=== PATIENT | male | born 1980 | race Caucasian/White ===

== ENCOUNTER 2020-04-23 16:49 | Outpatient (CLI) | payer SELFPAY ==
[2020-04-23 18:44] LABS: Thyroid Stimulating Hormone > 96.00 uIU/mL (0.36-3.74)
== END 2020-04-23 16:50 | disposition home or self-care (01) ==
LOC: CHSLAB 16:53
PROVIDERS: PCP Family Medicine; Visit Provider Family Medicine
DX: E03.9 Hypothyroidism, unspecified (principal)
CPT/HCPCS: 36415; 84443

== ENCOUNTER 2020-04-30 11:53 | Outpatient (CLI) | payer SELFPAY ==
[2020-04-30 12:18] LABS: Add Urine Microscopic? YES; Appearance Urine Clear (Clear); Basophils Absolute Auto 0.06 K/mm3 (0.00-0.10); Basophils Percent Auto 0.7 % (0.0-1.0); Bilirubin Urine Negative (Negative); Blood Urine Negative (Negative); Color Urine Yellow (Yellow); Eosinophils Absolute Auto 0.42 K/mm3 (0.02-0.50); Eosinophils Percent Auto 4.7 % (1.0-6.0); Glucose Urine UA Negative (Negative); Hematocrit 41.3 % (40.0-54.0); Hemoglobin 14.4 g/dL (14.0-18.0); Immature Granulocyte Absolute 0.02 K/mm3 (0.00-0.00); Immature Granulocyte Percent A 0.2 % (0.0-0.0); Ketones Urine Negative (Negative); Leukocyte Esterase Ur Negative (Negative); Lymphocytes Absolute Auto 2.55 K/mm3 (1.10-4.50); Lymphocytes Percent Auto 28.3 % (18.0-42.0); Mean Corpuscular HGB Conc 34.9 g/dL (32.0-36.0); Mean Corpuscular Hemoglobin 31.2 pg (27.0-31.0); Mean Corpuscular Volume 89.6 fL (78.0-102.0); Mean Platelet Volume 10.1 fl (8.7-11.0); Monocytes Absolute Auto 0.53 K/mm3 (0.10-0.90); Monocytes Percent Auto 5.9 % (2.0-11.0); Neutrophils Absolute Auto 5.4 K/mm3 (1.7-7.2); Neutrophils Percent Auto 60.2 % (50.0-70.0); Nitrate Urine Negative (Negative); Platelet Count Result 217 K/mm3 (150-420); Protein Urine Negative (Negative); Red Blood Count 4.61 M/mm3 (4.70-6.10); Red Cell Distribution Width 13.1 % (11.6-14.4); pH Urine 7.5 (5.0-8.0)
[2020-04-30 12:23] LABS: RBC Urine 0-2 /hpf (0-2); WBC Urine 0-3 /hpf (0-3)
[2020-04-30 12:24] LABS: Bacteria Urine None seen /hpf
[2020-04-30 12:35] LABS: Alanine Aminotransferase 68 U/L (16-63); Albumin Level 3.9 g/dL (3.4-5.0); Alkaline Phosphatase 91 U/L (46-116); Amylase 43 U/L (25-115); Anion Gap 10.9 mmol/L (7-16); Aspartate Amino Transferase 37 U/L (15-37); Bilirubin,Total 0.5 mg/dL (0.00-1.00); Blood Urea Nitrogen 14 mg/dL (7-18); Calcium 8.4 mg/dL (8.5-10.1); Carbon Dioxide 29 mmol/L (21-32); Chloride 102 mmol/L (98-108); Estimated Glomerular Filt Rate > 60; Glucose 97 mg/dL (70-99); Lipase 107 U/L (73-393); Osmolality Calculated 286 mOsm/kg (285-295); Potassium 3.9 mmol/L (3.5-5.1); Sodium 138 mmol/L (136-145); Total Protein 7.2 g/dL (6.4-8.2)
== END 2020-04-30 11:54 | disposition home or self-care (01) ==
LOC: CHSLAB 11:55
PROVIDERS: PCP Family Medicine; Visit Provider Family Medicine
DX: R10.84 Generalized abdominal pain (principal)
CPT/HCPCS: 36415; 80053; 81001; 82150; 83690; 85025

== ENCOUNTER 2020-05-01 07:20 | Outpatient (CLI) | payer SELFPAY ==
--- NOTE | ~2020-05-01 | US_ITS ---
US right upper quadrant INDICATION: Generalized abdominal pain with nausea PROCEDURE: Realtime right upper abdominal ultrasound. COMPARISON: No prior studies for comparison. FINDINGS: The pancreas is normal without focal mass or pancreatic ductal dilation. Liver echotexture is increased, consistent with fatty infiltration There is normal directional flow in the portal vei n. The gallbladder is normal without stones, gallbladder wall thickening or pericholecystic fluid. Comm on bile duct measures 4 mm. No sonographic Pritchett's sign. IMPRESSION: 1: Hepatic steatosis. Reviewed, dictated and finalized at location B. IMPRESSION: 1: Hepatic steatosis.
== END 2020-05-01 07:21 | disposition home or self-care (01) ==
PROVIDERS: PCP Family Medicine; Visit Provider Family Medicine
DX: R10.84 Generalized abdominal pain (principal)
CPT/HCPCS: 76705

== ENCOUNTER 2021-09-20 02:32 | Emergency (ER) | payer BC, SELFPAY ==
--- NOTE | ~2021-09-20 | XR_ITS ---
EXAMINATION: XR chest 1V portable DATE: 09/20/2021 02:59 INDICATION: Left chest pain. TECHNIQUE: A single frontal view of the chest was obtained. COMPARISON: Chest 2 views 10/07/2017 FINDINGS: The chest demonstrates clear lungs without pneumonia, pleural effusion, or pneumothorax. Th e heart size is normal. IMPRESSION: 1. No acute cardiopulmonary disease. Reviewed, dictated and finalized at location A. HERY MAN
--- NOTE | 2021-09-20 02:33 | ECG_ITS ---
Measurements Intervals [place] Rate: 86 P: 30 HI: 176 QRS: 15 QRSD: 102 T: 30 QT: 365 QTc: 438 Interpretive Statements SINUS RHYTHM DELAYED PRECORDIAL R/S TRANSITION VOLTAGE CRITERIA FOR LVH CONSIDER INFERIOR INFARCT, AGE INDETERMINATE BASELINE WANDER- I, II, III BORDERLINE ECG Electronically Signed On 09-20-2021 5:43:09 THREAD CUTTER by Cesar De Jesus D.O.
[2021-09-20 02:40] VITALS: BP 132/116; PULSE 90; RESP 18; TEMP 36.3; O2SAT 97
--- NOTE | 2021-09-20 02:59 | ED.CHESTPAIN ---
HPI - Chest Pain General Chief Complaint: Chest Pain Stated Complaint: CHEST PAIN Time Seen by Provider: 09/20/21 02:34 Source: patient, family and RN notes reviewed Mode of arrival: ambulatory Limitations: no limitations History of Present Illness complaint: chest pain Onset (ago): hour(s) (2) Timing of current episode: constant Prior episodes: Yes (2 years ago) Onset: during rest Pain location: substernal and left chest Pain radiation: none Severity: mild Pain scale (0-10): 5 Quality: aching Relieving factors: nothing Exacerbating factors: nothing Associated symptoms: other (migrainous HAYES) Treatment prior to arrival: none Risk Factors Coronary artery disease risk factors: hypertension Related Data Home Medications Medication Instructions Recorded Confirmed alprazolam 0.5 mg PO PRN PRN 09/20/21 09/20/21 levothyroxine 175 mcg PO DAILY 09/20/21 09/20/21 Allergies Allergy/AdvReac Type Severity Reaction Status Date / Time Penicillins Allergy Hives Verified 09/20/21 02:54 Review of Systems Review of Systems: All systems reviewed & are unremarkable except as noted in HPI and below PMFSH Past Medical History Medical History Chest pain Exam Const: General: cooperative, healthy appearing, no acute distress, well developed, alert and awake Nutritional Appearance: well nourished Orientation/consciousness: patient oriented x3 Limitations: no limitations HENMT: Head: normal to inspection, normocephalic and atraumatic Ears: hearing grossly normal bilaterally and external ears normal General nose exam: Normal external nose present and Normal nares present Mouth: Yes Normal oral and palatal mucosa present, Yes oropharynx normal and Yes moist mucous membranes Throat: posterior oropharynx normal Eyes: General: appearance normal, both eyes and all related structures Eyelids: eyelids normal Conjunctivae: conjunctivae normal Sclera: sclerae normal Cornea: corneas normal Pupils: Equal, round and reactive pupils present EOM: EOMs intact bilaterally Neck: Neck: normal visual inspection, full ROM, no lymphadenopathy and no meningeal signs Chest: Chest palpation & inspection: normal inspection of the chest Resp: Effort & Inspection: normal respiratory effort Auscultation: clear to auscultation bilaterally Percussion: percussion normal Cardio: Jugular venous distension: no JVD Palpation: normal PMI Rate: regular rate Rhythm: regular rhythm Heart sounds: S1 normal heart sound present and S2 normal heart sound present Peripheral pulses: Peripheral pulses 2+ throughout GI: Inspection: normal to inspection GI Palp: Yes Soft to palpation and No Tenderness to palpation present (GI) Percussion: Yes normal to percussion Auscultation: normal bowel sounds : General: Yes bladder normal to inspection and Yes bladder normal to palpation Back/Spine/Pelvis: Back: no CVA tenderness Skin: General skin exam: normal color and no rashes or lesions noted Neuro: General: oriented to person and patient oriented x3 Cranial nerves: Yes CN's II-XII intact bilaterally, Yes Facial sensation intact/muscles of mastication intact, Yes Intact sense of smell present, Yes Equal, round and reactive pupils present, Yes Normal accommodation reflex present and Yes Bilaterally intact EOM present Cognition (Neuro): normal cognition Gait exam (Neuro): Normal gait present Motor exam (neuro): 5/5 motor strength present throughout Extrem: General: normal to inspection, full ROM, capillary refill normal and normal exam except as noted Psych: Appearance: grossly normal and well kempt Mental Status: mental status grossly normal Speech and movement: Normal speech and movement present Affect: normal affect Attitude: cooperative Thought process: Normal thought process present Thought content: Yes Normal thought content present Course Course Emergency Course: Pt was stable and pain-free in
[2021-09-20] MEDS: ASPIRIN 81 MG CHEWABLE TABLET 324 MG PO (03:08)
[2021-09-20] MEDS: KETOROLAC (*BKC) 60 MG/2 ML VIAL IM (03:09)
[2021-09-20] MEDS: cloNIDine HCL 0.2 MG TABLET PO (03:12)
[2021-09-20 03:16] LABS: Basophils Absolute Auto 0.03 K/mm3 (0.00-0.10); Basophils Percent Auto 0.6 % (0.0-1.0); Eosinophils Absolute Auto 0.14 K/mm3 (0.02-0.50); Eosinophils Percent Auto 2.8 % (1.0-6.0); Hematocrit 42.3 % (40.0-54.0); Hemoglobin 15.1 g/dL (14.0-18.0); Lymphocytes Absolute Auto 1.18 K/mm3 (1.10-4.50); Lymphocytes Percent Auto 23.9 % (18.0-42.0); Mean Corpuscular HGB Conc 35.7 g/dL (32.0-36.0); Mean Corpuscular Hemoglobin 31.9 pg (27.0-31.0); Mean Corpuscular Volume 89.4 fL (78.0-102.0); Monocytes Absolute Auto 0.38 K/mm3 (0.10-0.90); Monocytes Percent Auto 7.7 % (2.0-11.0); Neutrophils Absolute Auto 3.2 K/mm3 (1.7-7.2); Platelet Count Result 158 K/mm3 (150-420); Red Blood Count 4.73 M/mm3 (4.70-6.10); Red Cell Distribution Width 12.7 % (11.6-14.4); White Blood Count 4.9 K/mm3 (4.8-10.8)
[2021-09-20 03:31] LABS: Alanine Aminotransferase 61 U/L (16-63); Albumin Level 3.7 g/dL (3.4-5.0); Alkaline Phosphatase 91 U/L (46-116); Anion Gap 12 mmol/L (8-16); Aspartate Amino Transferase 29 U/L (15-37); Bilirubin,Total 0.4 mg/dL (0.00-1.00); Blood Urea Nitrogen 9 mg/dL (7-18); Calcium 7.8 mg/dL (8.5-10.1); Carbon Dioxide 27 mmol/L (21-32); Chloride 100 mmol/L (98-108); Estimated CRCL calculation 92 ml/min; Estimated Glomerular Filt Rate 59; Glucose 117 mg/dL (70-99); NT Pro B Type Natriuretic Pept < 11 pg/mL (0-125); Osmolality Calculated 287 mOsm/kg (285-295); Potassium 3.4 mmol/L (3.5-5.1); Sodium 139 mmol/L (136-145); Total Protein 6.9 g/dL (6.4-8.2); Troponin I 8.1 ng/L (0.00-60.4)
[2021-09-20] MEDS: NITROGLYCERIN SL 0.4 MG TABLET SUBLINGUAL (03:35)
[2021-09-20 03:51] VITALS: BP 107/76; PULSE 80; RESP 18; TEMP 36.6; O2SAT 98
--- NOTE | 2021-09-20 03:52 | PC.NURSE ---
Patient states that CP is still present. gave patient Nitro and will wait to see if pain is relieved.
[2021-09-20 04:00] VITALS: BP 128/97; PULSE 74; RESP 16; TEMP 36.8; O2SAT 97
== END 2021-09-20 04:11 | disposition home or self-care (01) ==
PROVIDERS: Emergency Provider Emergency Medicine; PCP Family Medicine
DX: R07.89 Other chest pain (principal); I10 Essential (primary) hypertension
CPT/HCPCS: 36415; 71045; 80053; 83880; 84484; 85025; 93005; 96372; 99283; 99284; A9270; J1885

== ENCOUNTER 2025-07-21 14:14 | Outpatient (CLI) | payer SELFPAY ==
[2025-07-21 14:38] LABS: Hematocrit 43.2 % (40.0-54.0); Hemoglobin 14.9 g/dL (14.0-18.0); Mean Corpuscular HGB Conc 34.5 g/dL (32-36); Mean Corpuscular Hemoglobin 30.6 pg (27.0-31.0); Mean Corpuscular Volume 88.7 fL (78.0-102.0); Platelet Count Result 221 K/mm3 (150-420); Red Blood Count 4.87 M/mm3 (4.70-6.10); White Blood Count 7.1 K/mm3 (4.8-10.8)
[2025-07-21 14:53] LABS: Alanine Aminotransferase 31 U/L (6-50); Albumin Level 4.3 g/dL (3.5-5.1); Alkaline Phosphatase 89 U/L (38-126); Anion Gap 10 mmol/L (4-12); Aspartate Amino Transferase 31 U/L (17-59); Bilirubin,Total 0.7 mg/dL (0.2-1.3); Blood Urea Nitrogen 8 mg/dL (9-20); Calcium 8.7 mg/dL (8.4-10.2); Carbon Dioxide 28 mmol/L (22-30); Chloride 103 mmol/L (98-107); Estimated Glomerular Filt Rate > 60; Glucose 110 mg/dL (65-110); Osmolality Calculated 291 mOsm/kg (285-295); Potassium 3.9 mmol/L (3.4-5.0); Sodium 141 mmol/L (137-145); Total Protein 7.1 g/dL (6.3-8.2)
--- OUTSIDE RECORDS SUMMARY | 2025-07-21 15:06 | XMS_ITS | Clinical Summary ---
Author Organization [facility] Address [address] [place] [address] Care Team Providers Care Fish Cleaner Name Role Phone Cierra Guadarrama Primary Care Provid er Allergies Active Allergy Reactions Criticality Noted Date Comments Penicillins Unknown 11/28/2022 Medications ofloxacin (OCUFLOX) 0.3 % ophthalmic solution Administer 2 drops into the left eye every 4 (four) hours 5 mL 3 Active lidocaine (LIDODERM) 5 % Place 1 patch on the skin daily Remove & discard patch within 12 hours or as directed by . 9 patch 4 Active Immunizations Immunization Administration Dates Next Due Tdap 11/29/2022 Medical History Medical History Date Comments Hypothyroidism Social History Tobacco Use Types Packs/Day Years Used Date Smoking Tobacco: Never Smokeless Tobacco: Never Tobacco Cessation:Counseling Given: Not Answered Personal Safety Answer Date Recorded Have you ever been in or are you currently in a harmful physical or emotional relationship or is someone making you feel afraid or unsafe? 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 Gender Identity Not on file Sexual Orientation Not on file Obstetrics History Last Filed Vital Signs Vital Sign Reading Time Taken Comments Blood Pressure 124/94 05/07/2024 6:45 PM CDT Pulse 77 05/07/2024 6:45 PM CDT Temperature 36.6 C (97.8 F) 05/07/2024 6:45 PM CDT Respiratory Rate 18 05/07/2024 6:45 PM CDT Oxygen Saturation 96% 05/07/2024 6:45 PM CDT Inhaled Oxygen Concentration - - Weight 112.5 kg (248 lb) 05/07/2024 4:40 PM CDT Height 188 cm (6' 2) 05/07/2024 4:40 PM CDT Body Mass Index 31.84 05/07/2024 4:40 PM CDT Plan of Treatment Health Maintenance Due Date Last Done Comments Colon Cancer Screening-Colonoscopy 1980 Depression Screening 1980 Hepatitis C Screening 1980 Varicella Vaccines (1 of 2 - 13+ 2-dose series) 1993 Hepatitis B Screening 1998 Regular Well Visit/Exam 18-64 1998 HPV Vaccines (1 - 3-dose SCD M series) 2007 Influenza Vaccine (#1) 2025 DTaP/Tdap/Td Vaccine (4 - Td or Tdap) 11/29/2032 11/29/2022, 12/25/2015, 01/08/2013 Pneumococcal vaccine <65 Aged Out No longer eligible based on patient's age to complete this topic Care Teams Fish Cleaner Relationship Specialty Start Date End Date Cierra Guadarrama PA [address] [facility] [address] [place] [address] PCP - General Physician Ultrasound Technol 05/07/24
--- OUTSIDE RECORDS SUMMARY | 2025-07-21 15:06 | XMS_ITS | Clinical Summary ---
Author Organization [facility] Address [address] [place] [address] Care Team Providers Care Dramatic Art Teacher Name Role Phone None, Provider Primary Care Provider Unavaila ble Allergies Active Allergy Reactions Criticality Noted Date Comments Penicillin V Hives Low 01/01/2023 Medications levothyroxine (SYNTHROID) 137 MCG tablet Take 1 tablet (137 mcg total) by mouth daily. 30 tablet 3 01/06/2023 Active Active Problems Problem Noted Date Diagnosed Date Hypothyroidism 01/01/2023 Family History Medical History Relation Comments Heart Attack Father Stroke Father Relation Status Comments Father Maternal Grandmother Heart attac k- Mother Heart attack x2 Social History Tobacco Use Types Packs/Day Years Used Date Smoking Tobacco: Never Smokeless Tobacco: Never Alcohol Use Standard Drinks/Week Comments Not Currently 0 (1 standard drink = 0.6 oz pur e alcohol) Stopped drinking in 2020 Humiliation, Afraid, Rape, and Kick questionnair e Answer Date Recorded Within the last year, have y ou been afraid of your partner or ex-partner? No 01/02/2023 Within the last year, have y ou been humiliated or emotionally abused in other ways by your partner or ex-partner? No Within the last year, have y ou been kicked, hit, slapped, or otherwise physically hurt by your partner or ex-partner? No 01/02/2023 Within the last year, have y ou been raped or forced to have any kind of sexual activity by your partner or ex-partner? No 01/02/2023 Social Connection and Isolat ion Panel [NHANES] Answer Date Recorded In a typical week, how many times do you talk on the phone with family, friends, or neighbors? More than three times a week 01/02/2023 How often do you get togethe r with friends or relatives? More than three times a week 01/02/2023 How often do you attend chur ch or alevism services? Never 01/02/2023 Do you belong to any clubs o r organizations such as sabianism groups, unions, fraternal or athletic groups, or school groups? No 01/02/2023 How often do you attend meet ings of the clubs or organizations you belong to? Never 01/02/2023 Are you , , di vorced, , never , or living with a partner? Living with partner 01/02/2023 AUDIT-C Answer Date Recorded Q1: How often do you have a drink containing alc ohol? Monthly or less 01/02/2023 Q2: How many drinks containi ng alcohol do you have on a typical day when you are drinking? 1 or 2 01/02/2023 Q3: How often do you have si x or more drinks on one occasion? Less than monthly 01/02/2023 Overall Financial Resource Strain (CARDIA) Answe r Date Recorded How hard is it for you to pa y for the very basics like food, housing, medical care, and heating? Hard 01/02/2023 Exercise Vital Sign Answer Date Recorde d On average, how many days pe r week do you engage in moderate to strenuous exercise (like a brisk walk)? 0 days 01/02/2023 On average, how many minutes do you engage in exercise at this level? 0 min 01/02/2023 Hunger Vital Sign Answer Date Recorded Within the past 12 months, y ou worried that your food would run out before you got the money to buy more. Sometimes true Within the past 12 months, t he food you bought just didn't last and you didn't have money to get more. Never true PRAPARE - Transportation Answer Date Re corded In the past 12 months, has l ack of transportation kept you from medical appointments or from getting medications? No 12/15 In the past 12 months, has l ack of transportation kept you from meetings, work, or from getting things needed for daily living? No 01/02/2023 Housing Stability Vital Sign Answer Chase e Recorded In the last 12 months, was t here a time when you were not able to pay the mortgage or rent on time? Yes 01/02/2023 In the last 12 months, how many places have you lived? 1 01/02/2023 In the last 12 months, was t here a time when you did not have a steady place to sleep or slept in a assisted (including now)? Yes 01/02/2023 Sex and Gender Information Value Date Recorded Sex Assigned at Not on file Legal Sex Male 9:55 PM CDT Gender Identity Not on file Sexual Orientation Not on file Last Filed Vital Signs Vital Sign Reading Time Taken Comments Blood Pressure 136/100 10/18/2023 9:35 PM WEEKDAY BABYSITTER Pulse 105 10/18/2023 9:35 PM WEEKDAY BABYSITTER Temperature 36.1 C (97 F) 10/18/2023 9:35 PM WEEKDAY BABYSITTER Respiratory Rate 20 10/18/2023 9:35 PM WEEKDAY BABYSITTER Oxygen Saturation 100% 10/18/2023 9:35 PM WEEKDAY BABYSITTER Inhaled Oxygen Concentration - - Weight 117.9 kg (260 lb) 10/18/2023 9:35 PM WEEKDAY BABYSITTER Height 188 cm (6' 2) 10/18/2023 9:35 PM WEEKDAY BABYSITTER Body Mass Index 33.38 10/18/2023 9:35 PM WEEKDAY BABYSITTER Plan of Treatment Health Maintenance Due Date Last Done Comments Colorectal Cancer Screening Colonoscopy (10 Years) 1980 Annual Physical 1983 Hepatitis C 1998 Hepatitis B Vaccines (1 of 3 - 19+ 3-dose series) 1999 HPV Vaccines (1 - 3-dose SCD M series) 2007 COVID-19 Vaccine (2023-2 5 season) 2025 Influenza Adult (#1) 2025 DTaP, Tdap and Td Vaccines ( 4 - Td or Tdap) 11/29/2032 11/29/2022, 12/25/2015, 01/08/2013 Meningococcal B Vaccine Aged Out No l onger eligible based on patient's age to complete this topic Meningococcal Vaccine Aged Out No harry arti eligible based on patient's age to complete this topic Pneumococcal Vaccine: Pediatrics (0 to 5 Years) and At-Risk Patients (6 to 49 Years) Aged Out No longer eligible b ased on patient's age to complete this topic RSV Immunizations Under 20 Months Aged Out No longer eligible b ased on patient's age to complete this topic Advance Directives * Full Code (Latest Code Status on File) Date Activated Date Inactivated Comments 01/02/2023 12:33 AM 01/05/2023 2:09 PM Care Teams Dramatic Art Teacher Relationship Specialty Start Date End Date None, Provider, MD PCP - General UNKNOWN PHYSICIAN SPECIALTY 01/01/23
[2025-07-21 15:09] LABS: Free T3 3.40 pg/mL (2.18-3.98)
[2025-07-21 15:10] LABS: Free T4 Free Thyroxine 1.03 ng/dL (0.78-2.19)
[2025-07-21 15:24] LABS: Thyroid Stimulating Hormone 6.650 uIU/mL (0.465-4.680)
[2025-07-25 12:08] LABS: Free Testosterone (Direct) 5.4 pg/mL (6.8-21.5)
== END 2025-07-21 14:15 | disposition home or self-care (01) ==
PROVIDERS: PCP Family Medicine; Visit Provider Family Medicine
DX: E03.9 Hypothyroidism, unspecified (principal)
CPT/HCPCS: 36415; 80053; 84402; 84403; 84439; 84443; 84481; 85027